=== PATIENT | female | born 1990 | race African-American/Black ===

== ENCOUNTER 2017-09-05 18:22 | Emergency (ER) | payer MEDICAID ==
[~2017-09-05] VITALS: Ht 142.2 cm; Wt 43.0 kg
[~2017-09-05 18:22] MED LIST: ADVAIR; ALBUTEROL; FERR-43 PO; FLUT1DIS IH; FOLI-43 PO; KEPP500 PO; METR500T4 PO; PHEN100C4 PO; PREN-88 PO
[2017-09-05] MEDS ORDERED: ACETAMINOPHEN 325MG TABLET PO ONE (22:30)
[2017-09-05] MEDS ORDERED: SODIUM CHLORIDE 0.9% 1,000 ML IV ONE (22:30)
[2017-09-05 23:29] LABS: CLARITY URINE CLEAR (CLEAR); COLOR URINE YELLOW (YELLOW); GLUCOSE URINE NEGATIVE (NEGATIVE); KETONES URINE 1+ (NEGATIVE); LEUKOCYTE ESTERASE URINE NEGATIVE (NEGATIVE); NITRITE URINE NEGATIVE (NEGATIVE); OCCULT BLOOD URINE NEGATIVE (NEGATIVE); PROTEIN URINE NEGATIVE (NEGATIVE); SPECIFIC GRAVITY URINE 1.025 (1.005-1.030)
[2017-09-06 00:20] VITALS: BP 104/60
== END 2017-09-06 01:48 | disposition home or self-care (01) ==
LOC: ER 18:48
DX: O26.891 Other specified pregnancy related conditions, first trimester (principal); R51 Headache; R56.9 Unspecified convulsions; O99.511 Diseases of the respiratory system complicating pregnancy, first trimester; R05 Cough; J34.89 Other specified disorders of nose and nasal sinuses; J45.909 Unspecified asthma, uncomplicated; O99.341 Other mental disorders complicating pregnancy, first trimester; F31.9 Bipolar disorder, unspecified; F41.9 Anxiety disorder, unspecified; F12.10 Cannabis abuse, uncomplicated; Z88.5 Allergy status to narcotic agent; Z3A.13 13 weeks gestation of pregnancy; Z91.040 Latex allergy status; Z91.018 Allergy to other foods; Z91.19 Patient's noncompliance with other medical treatment and regimen
CPT/HCPCS: 76801; 81003; 99285; J7030

== ENCOUNTER 2018-01-02 09:04 | Emergency (ER) | payer MEDICAID ==
[~2018-01-02] VITALS: Ht 139.7 cm; Wt 43.0 kg
[2018-01-02] MEDS ORDERED: SODIUM CHLORIDE 0.9% 1,000 ML IV ONE (10:05)
[2018-01-02] MEDS ORDERED: KETOROLAC 30MG/ML VIAL IV STA (10:05)
[2018-01-02 11:00] LABS: HEMOGLOBIN. 11.7 g/dL (12.0-16.0); MEAN CORPUSCULAR HEMOGLOBIN 26.2 pg (28.0-32.0); MEAN CORPUSCULAR VOLUME 80.3 fL (81.0-99.0); RED BLOOD CELL COUNT 4.48 mill/uL (4.2-5.4); RED CELL DISTRIBUTION WIDTH 16.3 % (11.6-14.6)
[2018-01-02 11:05] LABS: CHLORIDE 106 mEq/L (98-107)
[2018-01-02 11:20] LABS: PLATELET ESTIMATE NORMAL
[2018-01-02 11:22] LABS: PLATELET 285 x1000/uL (130-400)
[2018-01-02 11:23] LABS: MEAN PLATELET VOLUME 7.8 fl (7.4-10.4)
[2018-01-02 12:54] LABS: CLARITY URINE CLEAR (CLEAR); COLOR URINE YELLOW (YELLOW); KETONES URINE NEGATIVE (NEGATIVE); LEUKOCYTE ESTERASE URINE NEGATIVE (NEGATIVE); NITRITE URINE NEGATIVE (NEGATIVE); OCCULT BLOOD URINE NEGATIVE (NEGATIVE); PROTEIN URINE NEGATIVE (NEGATIVE)
[2018-01-02] MEDS ORDERED: LAMOTRIGINE 100MG TABLET PO STA (13:13)
[2018-01-02 13:57] VITALS: BP 100/58
== END 2018-01-02 14:37 | disposition home or self-care (01) ==
LOC: ER 09:29
DX: B34.9 Viral infection, unspecified (principal); G40.909 Epilepsy, unspecified, not intractable, without status epilepticus; D72.829 Elevated white blood cell count, unspecified; D50.9 Iron deficiency anemia, unspecified; J45.909 Unspecified asthma, uncomplicated; F17.200 Nicotine dependence, unspecified, uncomplicated; F12.10 Cannabis abuse, uncomplicated; R51 Headache; R09.89 Other specified symptoms and signs involving the circulatory and respiratory systems; R07.9 Chest pain, unspecified; Z88.5 Allergy status to narcotic agent; Z91.19 Patient's noncompliance with other medical treatment and regimen; Z91.040 Latex allergy status; Z91.018 Allergy to other foods
CPT/HCPCS: 36415; 71045; 80053; 81003; 81025; 85025; 87070; 87430; 93005; 96361; 96374; 99285; J1885; J7030; Z7610

== ENCOUNTER 2018-02-02 11:09 | Emergency (ER) | payer MEDICAID ==
[~2018-02-02] VITALS: Ht 142.2 cm; Wt 43.0 kg
[2018-02-02 11:12] VITALS: BP 93/57
== END 2018-02-02 17:38 | disposition left against medical advice (07) ==
LOC: ER 11:12
DX: Z53.21 Procedure and treatment not carried out due to patient leaving prior to being seen by health care provider (principal)

== ENCOUNTER 2018-10-21 00:22 | Observation (INO) | payer MEDICAID ==
[~2018-10-21] VITALS: Ht 142.2 cm; Wt 38.1 kg
[~2018-10-21 00:22] MED LIST changes: +METR-218 PO; -METR500T4 PO
[2018-10-21] MEDS ORDERED: DEXT 5%/LACTATED RINGERS 500 ML IV NR (01:30)
[2018-10-21 01:37] LABS: CLARITY URINE CLEAR (CLEAR); COLOR URINE YELLOW (YELLOW); KETONES URINE 3+ (NEGATIVE); LEUKOCYTE ESTERASE URINE NEGATIVE (NEGATIVE); NITRITE URINE NEGATIVE (NEGATIVE); OCCULT BLOOD URINE NEGATIVE (NEGATIVE); PROTEIN URINE NEGATIVE (NEGATIVE); SPECIFIC GRAVITY URINE 1.031 (1.005-1.030)
[2018-10-21] MEDS: TERBUTALINE SULFATE 1MG/ML VIAL SUBCUT PRN ×2 (03:15→03:21)
[2018-10-21] MEDS ORDERED: FOLI0.4T2 MT (05:00)
[2018-10-21] MEDS ORDERED: LAM25 MT (05:00)
[2018-10-21] MEDS ORDERED: CALC-1042 MT (05:00)
[2018-10-21] MEDS ORDERED: ALBU6.7H9 INH (05:00)
== END 2018-10-21 08:45 | disposition home or self-care (01) ==
LOC: 8 EST LDRP 00:22 → MERGE 00:22
PROVIDERS: ADMIT Obstetrics & Gynecology; ATTEND Obstetrics & Gynecology
DX: O62.9 Abnormality of forces of labor, unspecified (principal); O99.352 Diseases of the nervous system complicating pregnancy, second trimester; G40.909 Epilepsy, unspecified, not intractable, without status epilepticus; O99.512 Diseases of the respiratory system complicating pregnancy, second trimester; J45.909 Unspecified asthma, uncomplicated; Z3A.21 21 weeks gestation of pregnancy
CPT/HCPCS: 81003; 96372; 99281; G0378; J3105

== ENCOUNTER 2018-10-29 10:07 | Observation (INO) | payer MEDICAID ==
[~2018-10-29] VITALS: Ht 142.2 cm; Wt 38.1 kg
[~2018-10-29 10:07] MED LIST changes: +ALBU6.7H9 INH; +CALC-1042 MT; +FOLI0.4T2 MT; +LAM25 MT
[2018-10-29] MEDS ORDERED: LAM1 PO (10:38)
[2018-10-29] MEDS ORDERED: ACETAMINOPHEN 325MG TABLET PO NR (11:15)
== END 2018-10-29 11:35 | disposition home or self-care (01) ==
LOC: ER 10:24 → 8 EST LDRP 10:26
PROVIDERS: ADMIT Obstetrics & Gynecology; ATTEND Obstetrics & Gynecology
DX: O26.892 Other specified pregnancy related conditions, second trimester (principal); R10.30 Lower abdominal pain, unspecified; R51 Headache; Z3A.22 22 weeks gestation of pregnancy
CPT/HCPCS: 99281; G0378

== ENCOUNTER 2023-05-20 01:17 | Emergency (ER) | payer MEDICAID ==
[~2023-05-20] VITALS: Ht 152.4 cm; Wt 54.0 kg
[~2023-05-20 01:17] MED LIST changes: -ADVAIR; +ALBU6.7H3 INH; -ALBU6.7H9 INH; -FOLI0.4T2 MT; +FOLI0.4T6 MT; -KEPP500 PO; +LAM1 PO; -METR-218 PO; -PHEN100C4 PO
[2023-05-20 01:33] VITALS: O2SAT 98
[2023-05-20 02:28] LABS: BASOPHILS % 0.2 % (0.0-2.0); EOSINOPHILS % 0.1 % (0.0-5.0); HEMATOCRIT. 39.7 % (36.0-48.0); HEMOGLOBIN. 12.8 g/dL (12.0-16.0); LYMPHOCYTES % 14.9 % (20.0-50.0); MEAN CORPUSCULAR HEMOGLOBIN 26.5 pg (28.0-32.0); MEAN CORPUSCULAR HGB CONC 32.1 g/dL (31.0-37.0); MEAN CORPUSCULAR VOLUME 82.5 fL (81.0-99.0); MEAN PLATELET VOLUME 7.1 fl (7.4-10.4); MONOCYTES % 12.3 % (2.0-8.0); NEUTROPHILS % 72.5 % (40.0-76.0); PLATELET 439 x1000/uL (130-400); RED BLOOD CELL COUNT 4.81 mill/uL (4.2-5.4); RED CELL DISTRIBUTION WIDTH 14.1 % (11.6-14.6)
[2023-05-20 02:42] LABS: CHLORIDE 96 mEq/L (98-107); INDEX HEMOLYSI 1 (1-3); INDEX ICTERIC 1 (1-4); INDEX LIPEMIC 1 (1-3); POTASSIUM 3.1 mEq/L (3.5-5.1); SODIUM 133 mEq/L (136-145)
[2023-05-20 02:49] LABS: HCG SCREEN NEGATIVE
[2023-05-20 02:51] LABS: ALANINE AMINOTRANSFERASE 55 IU/L (13-61); ALBUMIN 2.8 g/dL (3.4-5.0); ASPARTATE AMINOTRANSFERASE 50 IU/L (15-37); BILIRUBIN TOTAL 0.5 mg/dL (0.1-1.0); CALCIUM 9.2 mg/dL (8.5-10.1); CARBON DIOXIDE 24 mEq/L (21-32); CREATININE 0.8 mg/dL (0.6-1.3); ETHANOL BLOOD < 10 mg/dL (-10); GLUCOSE 97 mg/dL (70-105); PROTEIN TOTAL 9.2 g/dL (6.0-8.3); UREA NITROGEN BLOOD 6 mg/dL (7-21)
[2023-05-20] MEDS ORDERED: KETOROLAC 30MG/ML VIAL IM ONE (03:45)
[2023-05-20] MEDS ORDERED: SODIUM CHLORIDE 0.9% 1,000 ML IV ONE (03:45)
[2023-05-20 04:27] LABS: CLARITY URINE CLOUDY (CLEAR); COLOR URINE DARK YELLOW (YELLOW); GLUCOSE URINE NEGATIVE (NEGATIVE); KETONES URINE 4+ (NEGATIVE); LEUKOCYTE ESTERASE URINE 2+ (NEGATIVE); NITRITE URINE POSITIVE (NEGATIVE); OCCULT BLOOD URINE 3+ (NEGATIVE); PROTEIN URINE 1+ (NEGATIVE); SPECIFIC GRAVITY URINE 1.017 (1.005-1.030)
[2023-05-20] MEDS ORDERED: CEFTRIAXONE 1GM PREMIX 50 ML IV ONE (05:00)
[2023-05-20 05:23] LABS: BACTERIA URINE 2+; SQUAMOUS EPITHELIAL CELL URINE 3+ /lpf (RARE/1+)
[2023-05-20] MEDS ORDERED: ONDA4TAB11 PO (06:26)
[2023-05-20] MEDS ORDERED: CEFP200T13 MT (06:26)
[2023-05-20] MEDS ORDERED: IBUP-2029 MT (06:27)
[2023-05-20] MEDS ORDERED: KETOROLAC 30MG/ML VIAL IM NR (06:45)
[2023-05-20] MEDS ORDERED: CEFTRIAXONE 1GM PREMIX 50 ML IV NR (06:45)
[2023-05-20 09:08] VITALS: BP 124/68; PULSE 75; RESP 18; TEMP 98.5
== END 2023-05-20 09:09 | disposition home or self-care (01) ==
LOC: ER 01:17
DX: N12 Tubulo-interstitial nephritis, not specified as acute or chronic (principal); J45.909 Unspecified asthma, uncomplicated; Z88.5 Allergy status to narcotic agent; Z91.018 Allergy to other foods; Z88.9 Allergy status to unspecified drugs, medicaments and biological substances; Z91.010 Allergy to peanuts; Z79.899 Other long term (current) drug therapy; Z86.59 Personal history of other mental and behavioral disorders
CPT/HCPCS: 80053; 81003; 80320; 84703; 83690; 85025; 87086; 36415; 76700; 99284; J0696; J1885; J7030; Z7610 ×4; G0480

== ENCOUNTER 2023-10-20 02:33 | Emergency (ER) | payer MEDICAID, OTHER ==
[~2023-10-20] VITALS: Ht 137.2 cm; Wt 52.0 kg
[~2023-10-20 02:33] MED LIST changes: +ALBU18HF2 IH; -ALBU6.7H3 INH; -ALBUTEROL; +BENZ100C86 MT; +CEFP200T13 MT; +FAMO20TA8 MT; -FLUT1DIS IH; +FLUT1DIS2 INH; -FOLI0.4T6 MT; +GUAI600T44 MT; +IBUP-2029 MT; +LORA10TA7 MT; +MONT-46 MT; +ONDA4TAB11 PO; +P20 MT
[2023-10-20 02:59] VITALS: O2SAT 100
[2023-10-20 03:22] LABS: CLARITY URINE CLEAR (CLEAR); COLOR URINE YELLOW (YELLOW); GLUCOSE URINE NEGATIVE (NEGATIVE); KETONES URINE NEGATIVE (NEGATIVE); LEUKOCYTE ESTERASE URINE NEGATIVE (NEGATIVE); NITRITE URINE NEGATIVE (NEGATIVE); OCCULT BLOOD URINE NEGATIVE (NEGATIVE); PH URINE 5.5 (4.5-8.0); PROTEIN URINE NEGATIVE (NEGATIVE); SPECIFIC GRAVITY URINE 1.032 (1.005-1.030)
[2023-10-20 03:47] LABS: ALANINE AMINOTRANSFERASE 13 IU/L (10-49); ALBUMIN 4.2 g/dL (3.2-4.8); ASPARTATE AMINOTRANSFERASE 20 IU/L (<34); BILIRUBIN TOTAL < 0.2 mg/dL (0.1-1.0); CALCIUM 9.2 mg/dL (8.7-10.4); CARBON DIOXIDE 26 mEq/L (21-32); CHLORIDE 106 mEq/L (98-107); CREATININE 0.6 mg/dL (0.6-1.0); GLUCOSE 107 mg/dL (70-105); POTASSIUM 3.5 mEq/L (3.5-5.1); PROTEIN TOTAL 6.9 g/dL (6.0-8.3); SODIUM 138 mEq/L (136-145); UREA NITROGEN BLOOD 8 mg/dL (9-23)
[2023-10-20 03:51] LABS: TROPONIN I HIGH SENSITIVITY < 4 ng/L (3.0-34)
[2023-10-20 04:30] LABS: HCG SCREEN NEGATIVE
[2023-10-20 04:52] LABS: BASOPHILS % 0.2 % (0.0-2.0); DIFFERENTIAL COMMENT 0; EOSINOPHILS % 0.6 % (0.0-5.0); HEMATOCRIT. 38.3 % (36.0-48.0); HEMOGLOBIN. 12.2 g/dL (12.0-16.0); LYMPHOCYTES % 34.1 % (20.0-50.0); MEAN CORPUSCULAR HGB CONC 31.8 g/dL (31.0-37.0); MEAN CORPUSCULAR VOLUME 84.8 fL (81.0-99.0); MEAN PLATELET VOLUME 7.1 fl (7.4-10.4); MONOCYTES % 7.2 % (2.0-8.0); NEUTROPHILS % 57.9 % (40.0-76.0); PLATELET 348 x1000/uL (130-400); RED BLOOD CELL COUNT 4.52 mill/uL (4.2-5.4); RED CELL DISTRIBUTION WIDTH 16.5 % (11.6-14.6); WHITE BLOOD COUNT 9.1 x1000/uL (4.5-11.0)
[2023-10-20] MEDS ORDERED: IBUPROFEN 400MG TABLET PO ONE (06:15)
[2023-10-20 06:21] VITALS: BP 112/73; PULSE 78; RESP 18; TEMP 98
== END 2023-10-20 06:23 | disposition home or self-care (01) ==
LOC: ER 03:09
DX: R10.9 Unspecified abdominal pain (principal); J45.909 Unspecified asthma, uncomplicated; R56.9 Unspecified convulsions; F12.90 Cannabis use, unspecified, uncomplicated; D57.1 Sickle-cell disease without crisis; Z88.6 Allergy status to analgesic agent; Z91.018 Allergy to other foods; Z88.8 Allergy status to other drugs, medicaments and biological substances; Z91.010 Allergy to peanuts; Z79.899 Other long term (current) drug therapy; Z87.442 Personal history of urinary calculi
CPT/HCPCS: 36415; 74176; 80053; 81003; 84484; 84703; 85025; 99284

== ENCOUNTER 2025-03-02 09:38 | Emergency (ER) | payer MEDICAID, OTHER ==
[~2025-03-02] VITALS: Ht 142.2 cm; Wt 53.0 kg
[~2025-03-02 09:38] MED LIST changes: +ONDA-239 PO; -ONDA4TAB11 PO
[2025-03-02 09:43] VITALS: TEMP 36.8; O2SAT 97
[2025-03-02] MEDS: ONDANSETRON HCL 4MG/2ML INJ IV STA (09:55)
[2025-03-02 10:12] LABS: BASOPHILS % 0.3 % (0.0-2.0); EOSINOPHILS % 0.3 % (0.0-5.0); HEMATOCRIT. 40.5 % (36.0-48.0); HEMOGLOBIN. 13.4 g/dL (12.0-16.0); LYMPHOCYTES % 22.2 % (20.0-50.0); MEAN CORPUSCULAR HEMOGLOBIN 27.8 pg (28.0-32.0); MEAN CORPUSCULAR HGB CONC 33.2 g/dL (31.0-37.0); MEAN CORPUSCULAR VOLUME 83.9 fL (81.0-99.0); MEAN PLATELET VOLUME 7.3 fl (7.4-10.4); MONOCYTES % 4.9 % (2.0-8.0); NEUTROPHILS % 72.3 % (40.0-76.0); PLATELET 305 x1000/uL (130-400); RED BLOOD CELL COUNT 4.83 mill/uL (4.2-5.4); RED CELL DISTRIBUTION WIDTH 14.1 % (11.6-14.6)
[2025-03-02 10:20] LABS: CHLORIDE 105 mEq/L (98-107); POTASSIUM 3.9 mEq/L (3.5-5.1); SODIUM 138 mEq/L (136-145)
[2025-03-02 10:21] LABS: CARBON DIOXIDE 24 mEq/L (21-32)
[2025-03-02 10:22] LABS: CALCIUM 9.1 mg/dL (8.7-10.4)
[2025-03-02 10:26] LABS: CREATININE 0.7 mg/dL (0.6-1.0)
[2025-03-02 10:27] LABS: GLUCOSE 95 mg/dL (70-105); UREA NITROGEN BLOOD 7 mg/dL (9-23)
[2025-03-02 10:28] LABS: ALANINE AMINOTRANSFERASE 15 IU/L (10-49); ALBUMIN 4.6 g/dL (3.2-4.8); ASPARTATE AMINOTRANSFERASE 19 IU/L (<34)
[2025-03-02 10:29] LABS: BILIRUBIN DIRECT 0.1 mg/dL (<=3.0); BILIRUBIN TOTAL 0.5 mg/dL (0.1-1.0); PROTEIN TOTAL 7.8 g/dL (6.0-8.3)
[2025-03-02] MEDS: MORPHINE SULFATE 4 MG/ML INJ (FOR IV/IM USE) IV STA (10:40)
[2025-03-02 10:41] LABS: CLARITY URINE CLOUDY (CLEAR); COLOR URINE YELLOW (YELLOW); GLUCOSE URINE NEGATIVE (NEGATIVE); KETONES URINE NEGATIVE (NEGATIVE); LEUKOCYTE ESTERASE URINE NEGATIVE (NEGATIVE); NITRITE URINE NEGATIVE (NEGATIVE); OCCULT BLOOD URINE NEGATIVE (NEGATIVE); PROTEIN URINE NEGATIVE (NEGATIVE)
[2025-03-02 10:45] LABS: UCG KIT EXPIRATION DATE 11/27/2026; UCG SCREEN NEGATIVE
[2025-03-02 11:01] LABS: HCG SCREEN NEGATIVE
[2025-03-02 11:04] LABS: MUCUS URINE 1+ /lpf (< = 2+); SQUAMOUS EPITHELIAL CELL URINE 3+ /lpf (RARE/1+)
[2025-03-02 11:05] LABS: BACTERIA URINE 3+; RBC URINE NONE SEEN /hpf (0-2); TRICHOMONAS URINE FEW; WBC URINE 0-2 /hpf (0-2)
[2025-03-02] MEDS ORDERED: IOHEXOL-300 100 ML BOTTLE ONE (12:15)
[2025-03-02] MEDS ORDERED: DICY20TA2 MT (14:03)
[2025-03-02 14:30] VITALS: BP 101/62; PULSE 81; RESP 16; O2SAT 96
== END 2025-03-02 14:50 | disposition home or self-care (01) ==
LOC: ER 09:38
DX: R10.30 Lower abdominal pain, unspecified (principal); F12.10 Cannabis abuse, uncomplicated; J45.909 Unspecified asthma, uncomplicated; Z88.5 Allergy status to narcotic agent; Z79.899 Other long term (current) drug therapy; Z98.890 Other specified postprocedural states; Z86.59 Personal history of other mental and behavioral disorders
CPT/HCPCS: 80076; 80048; 81003; 81025; 84703; 83690; 85025; 86850; 86900; 86901; 36415; 74177; 99285; Q9967; Z7610 ×3; A4606